=== PATIENT | male | born 1965 | race African-American/Black ===

== ENCOUNTER 2024-12-19 18:41 | Inpatient (IN) | payer OTHER ==
[~2024-12-19] VITALS: Ht 182.9 cm; Wt 104.8 kg
[2024-12-19 19:48] LABS: BASOPHILS % 0.1 % (0.0-2.0); EOSINOPHILS % 0.0 % (0.0-5.0); HEMATOCRIT. 23.8 % (42.0-52.0); HEMOGLOBIN. 8.5 g/dL (14.0-18.0); LYMPHOCYTES % 10.3 % (20.0-50.0); MEAN PLATELET VOLUME 8.8 fl (7.4-10.4); MONOCYTES % 3.6 % (2.0-8.0); NEUTROPHILS % 86.0 % (40.0-76.0); PLATELET 156 x1000/uL (130-400); RED BLOOD CELL COUNT 2.55 mill/uL (4.7-6.1); RED CELL DISTRIBUTION WIDTH 16.6 % (11.6-14.6)
[2024-12-19 20:01] LABS: UREA NITROGEN BLOOD 53 mg/dL (9-23)
[2024-12-19 20:03] LABS: ASPARTATE AMINOTRANSFERASE 35 IU/L (<34); BILIRUBIN DIRECT 0.2 mg/dL (<=3.0)
[2024-12-19 20:04] LABS: BILIRUBIN TOTAL 0.7 mg/dL (0.1-1.0); PROTEIN TOTAL 5.4 g/dL (6.0-8.3)
[2024-12-19 20:12] LABS: INR 1.1
[2024-12-19 20:32] LABS: CREATININE 7.4 mg/dL (0.6-1.3)
[2024-12-19 20:33] LABS: TROPONIN I HIGH SENSITIVITY 286 ng/L (3.0-53)
[2024-12-19] MEDS: CEFTRIAXONE 1GM/50ML 50 ML IV ONE (20:52)
[2024-12-19 21:32] LABS: TROPONIN I HIGH SENSITIVITY 277 ng/L (3.0-53)
[2024-12-19] MEDS: IOHEXOL-350 100 ML BOTTLE ONE (21:59)
[2024-12-20] VITALS (24 sets, daily range): BP systolic 115–162; BP diastolic 57–97; PULSE 88–108; RESP 13–21; TEMP 36.1–37.4188; O2SAT 96–100
[2024-12-20] MEDS: HYDROCODONE/ACETAMINOPHEN 5/325MG TABLET PO SCH (02:00)
[2024-12-20] MEDS: NITROGLYCERIN 0.4MG TABLET SL SL PRN (02:32)
[2024-12-20] MEDS: KETOROLAC 15MG/ML VIAL IV SCH (02:46)
[2024-12-20] MEDS ORDERED: FUROSEMIDE 100MG/10ML VIAL IVP ONE (04:45)
[2024-12-20] MEDS ORDERED: ONDANSETRON HCL 4MG/2ML INJ IV PRN (05:00)
[2024-12-20] MEDS ORDERED: AZITHROMYCIN 500MG/250ML 250 ML IV SCH (05:00)
[2024-12-20] MEDS ORDERED: DOCUSATE SODIUM 100MG CAPSULE PO PRN (05:00)
[2024-12-20] MEDS ORDERED: ACETAMINOPHEN 325MG TABLET PO PRN ×2 (05:00)
[2024-12-20] MEDS ORDERED: IPRATROPIUM/ALBUTEROL 0.5-3(2.5)MG/3ML NEB HHN PRN (05:00)
[2024-12-20] MEDS: CLONIDINE 0.1MG TABLET PO PRN (05:22)
[2024-12-20] MEDS: FUROSEMIDE 100MG/10ML VIAL IVP SCH (05:35)
[2024-12-20] MEDS: IPRATROPIUM/ALBUTEROL 0.5-3(2.5)MG/3ML NEB HHN SCH (05:36)
[2024-12-20 05:46] LABS: BG BASE EXCESS 2.8 mmol/L (-2.0-3.0); BG CARBOXYHEMOGLOBIN 0.9 % (0.5-1.5); BG DEOXYHEMOGLOBIN 2.0 % (0.0-5.0); BG FLOW(L/min) 5.00 L/min; BG FRACTION INSPIRED OXYGEN 40; BG HCO3 ACT 26.8 mmol/L (21.0-28.0); BG METHEMOGLOBIN 0.0 % (0.5-1.5); BG OXYGEN SATURATION 98.0 % (94.0-98.0); BG OXYHEMOGLOBIN 97.1 % (94.0-98.0); BG PCO2 38.5 mmHg (35.0-48.0); BG PH 7.461 (7.350-7.450); BG PO2 110.3 mmHg (83.0-108.0); BG SAMPLE SITE RIGHT RADIAL; BG TOTAL HEMOGLOBIN 8.2 g/dL (13.5-17.5); BG VENT MODE MASK - SIMPLE
[2024-12-20] MEDS: AZITHROMYCIN 500MG in D5W 250ML IV SCH (08:56)
[2024-12-20] MEDS: PANTOPRAZOLE SODIUM 40 MG/VIAL IV SCH (08:56)
[2024-12-20] MEDS: ENOXAPARIN 30MG/0.3ML SYR SUBCUT SCH (08:57)
[2024-12-20 12:13] LABS: CREATINE KINASE MB FRACTION 6.5 ng/mL (0.5-3.6)
[2024-12-20 12:14] LABS: PHOSPHORUS 5.1 mg/dL (2.5-4.9)
[2024-12-20 12:18] LABS: TROPONIN I HIGH SENSITIVITY 263 ng/L (3.0-53)
[2024-12-20 12:50] LABS: HEPATITIS A AB IGM NEGATIVE (Negative)
[2024-12-20 12:51] LABS: HEPATITIS B CORE AB IGM NEGATIVE (Negative)
[2024-12-20 12:52] LABS: HEPATITIS C AB NON REACTIVE (Neg) (Negative)
[2024-12-20 18:45] LABS: CREATINE KINASE MB FRACTION 8.7 ng/mL (0.5-3.6)
[2024-12-20 18:49] LABS: TROPONIN I HIGH SENSITIVITY 300.0 ng/L (3.0-53)
[2024-12-20] MEDS: CEFTRIAXONE 1GM/50ML 50 ML IV SCH (23:18)
[2024-12-21] VITALS (19 sets, daily range): BP systolic 110–165; BP diastolic 65–97; PULSE 79–121; RESP 11–24; TEMP 36.44736–37.1; O2SAT 85–100
[2024-12-21 08:22] LABS: BASOPHILS % 0.2 % (0.0-2.0); EOSINOPHILS % 1.2 % (0.0-5.0); HEMATOCRIT. 22.7 % (42.0-52.0); HEMOGLOBIN. 7.8 g/dL (14.0-18.0); LYMPHOCYTES % 12.5 % (20.0-50.0); MEAN PLATELET VOLUME 8.7 fl (7.4-10.4); MONOCYTES % 10.1 % (2.0-8.0); NEUTROPHILS % 76.0 % (40.0-76.0); PLATELET 142 x1000/uL (130-400); RED BLOOD CELL COUNT 2.39 mill/uL (4.7-6.1); RED CELL DISTRIBUTION WIDTH 17.5 % (11.6-14.6)
[2024-12-21 08:36] LABS: UREA NITROGEN BLOOD 56.0 mg/dL (9-23)
[2024-12-21 09:18] LABS: CREATININE 7.9 mg/dL (0.6-1.3)
[2024-12-21] MEDS ORDERED: METO25TA6 PO (10:13)
[2024-12-21] MEDS ORDERED: APIX5TAB PO (12:37)
[2024-12-21] MEDS: ENOXAPARIN 80MG/0.8ML SYR SUBCUT NR (13:00)
[2024-12-21] MEDS ORDERED: ENOXAPARIN 100MG/ML SYR SUBCUT SCH (13:00)
[2024-12-21 16:21] LABS: TROPONIN I HIGH SENSITIVITY 395 ng/L (3.0-53)
[2024-12-21] MEDS ORDERED: METOPROLOL TARTRATE 25MG TABLET PO SCH (21:00)
[2024-12-22] MEDS ORDERED: ENOXAPARIN 100MG/ML SYR SUBCUT SCH (09:00)
== END 2024-12-21 19:45 | disposition short-term general hospital (02) | DRG 640 ==
LOC: ER 18:41 → 5WST 20:38 → EDBEDREQTM 20:41 → EDBEDREQ 20:41 → ENRESERV 21:13 → 5EST 12-20 05:20
PROVIDERS: ADMIT Hospitalist; ATTEND Hospitalist
PROC: 5A1D70Z Performance of Urinary Filtration, Intermittent, Less than 6 Hours Per Day (ICD-10-PCS; principal; 2024-12-20)
PROC: 5A1D70Z Performance of Urinary Filtration, Intermittent, Less than 6 Hours Per Day (ICD-10-PCS; 2024-12-21)
DX: E87.70 Fluid overload, unspecified (principal); I21.A1 Myocardial infarction type 2; J96.01 Acute respiratory failure with hypoxia; J18.9 Pneumonia, unspecified organism; N18.6 End stage renal disease; I12.0 Hypertensive chronic kidney disease with stage 5 chronic kidney disease or end stage renal disease; J81.1 Chronic pulmonary edema; C90.00 Multiple myeloma not having achieved remission; I31.39 Other pericardial effusion (noninflammatory); D63.1 Anemia in chronic kidney disease; Z99.2 Dependence on renal dialysis
CPT/HCPCS: 36415; 36600; 71045; 71275; 80048; 80076; 82375; 82550; 82553; 82805; 83605; 83735; 83880; 84100; 84145; 84484; 85025; 86705; 86709; 87340; 90935; 93005; 93970; 94070; 94640; 94664; 98960; 99291; A4606; J0456; J0696; J1650; J1885; J1938; J2470; Q9967